=== PATIENT | female | born 1990 | race Caucasian/White ===

== ENCOUNTER 2016-10-24 13:51 | Emergency (ER) | payer MEDICAID ==
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
== END 2016-10-24 15:11 | disposition home or self-care (01) ==
LOC: ER 13:51
DX: S50.02XA Contusion of left elbow, initial encounter (principal); M54.2 Cervicalgia; R30.0 Dysuria; F17.210 Nicotine dependence, cigarettes, uncomplicated; J45.909 Unspecified asthma, uncomplicated; Z91.012 Allergy to eggs; Z98.890 Other specified postprocedural states; Y04.2XXA Assault by strike against or bumped into by another person, initial encounter; Y92.69 Other specified industrial and construction area as the place of occurrence of the external cause